=== PATIENT | male | born 1950 | race Caucasian/White ===

== ENCOUNTER → 2016-12-17 | Outpatient (CLI) | payer MEDICARE, OTHER | END | disposition home or self-care (01) | LOC: PCVCIMAG 11:48 | PROVIDERS: ATTEND Internal Medicine Cardiovascular Disease | DX: I65.23 Occlusion and stenosis of bilateral carotid arteries (principal); E11.9 Type 2 diabetes mellitus without complications; R01.1 Cardiac murmur, unspecified; R06.00 Dyspnea, unspecified; I25.10 Atherosclerotic heart disease of native coronary artery without angina pectoris; I35.0 Nonrheumatic aortic (valve) stenosis | CPT/HCPCS: 80061; 93005; 93306; 93880; G0463 ==

== ENCOUNTER → 2017-07-08 | Outpatient (CLI) | payer OTHER | END | disposition home or self-care (01) | LOC: PCVCCLINIC 14:35 | PROVIDERS: ATTEND Internal Medicine Cardiovascular Disease | DX: I25.10 Atherosclerotic heart disease of native coronary artery without angina pectoris (principal); E78.00 Pure hypercholesterolemia, unspecified; I10 Essential (primary) hypertension; I35.0 Nonrheumatic aortic (valve) stenosis; I77.9 Disorder of arteries and arterioles, unspecified; I42.9 Cardiomyopathy, unspecified; I70.1 Atherosclerosis of renal artery; R94.31 Abnormal electrocardiogram [ECG] [EKG]; E11.9 Type 2 diabetes mellitus without complications; Z87.891 Personal history of nicotine dependence; Z79.82 Long term (current) use of aspirin; Z79.899 Other long term (current) drug therapy | CPT/HCPCS: 80061; 93005; G0463 ==

== ENCOUNTER → 2019-04-23 | Outpatient (CLI) | payer MEDICARE ==
[~2019-04-23] MED LIST: REGADENOSON 0.4 MG/5 ML DISP.SYRIN. IV ONE
--- NOTE | 2019-04-23 17:18 | PCVCIMAG ---
APPROVED REPORT Imaging Protocol: Rest Tc-99m/Stress Tc-99m 1 day Study performed: 04/23/2019 09:00:29 Indication: Severe Dizziness and Hypertension Patient Location: Out-Patient Stress Nurse: Yasmeen Feldman RN, Casandra Bush RN DC Tech:Yokasta AMANDO SheridanMT Ht: 5 ft 8 in Wt: 214 lbs BSA: 2.10 m2 HR: 87 bpm BP: 144/64 mmHg BMI: 32.5 Rhythm: Sinus Rhythm Medical History Medical History: Hyperlipidemia, HTN, CAD, CVD, Diabetes, Former Smoker, [place] Medications: ASA, Atorvastatin, Jardiance, Amaryl, Metformin, Bystolic, Actos Allergies: No known drug allergies Cardiac Risk Factors: Age Previous Cardiac Procedures: 2002 PCI Diagonal Pretest Chest Pain Characteristics: No chest pain Exercise History: Indeterminate Meds Held (24 hrs): Bystolic Resting Data Rest SPECT myocardial perfusion imaging was performed in supine position 45 minutes following the intravenous injection of 10.2 mCi of Tc-99m Sestamibi. Time of rest injection: 0845 Date: 04/23/2019 Administration Route: IV Administration Site: Right Arm Pharmacologic Stress Pharmacologic stress test was performed by injecting Regadenoson 0.4 mg IV push over 10-15 seconds immediately followed by the intravenous injection of 34.3 mCi of Tc-99m Sestamibi. Time of stress injection: 1000 Date: 04/23/2019 Administration Route: IV Administration Site: Right Arm Gated Stress SPECT was performed 45 minutes after stress injection. Stress Test Details Stress Test: Pharmacologic stress testing performed using 0.4 mg of regadenoson per 5 mL given IV over 10 seconds. Reason for pharmacologic stress test: physical limitation. HRMax Heart Rate (APMHR): 153 bpm Resting HR: 87 bpmTarget HR (85% APMHR): 130 bpm Max HR Achieved: 99 bpm % of APMHR: 64 Recovery HR: 96 bpm BP Resting BP: 144/64 mmHg Max BP: 156/70 mmHg Recovery BP: 141/60 mmHg ECG Resting ECG: Sinus Rhythm Stress ECG: Sinus Rhythm Arrhythmia: VPC's Recovery ECG: Sinus Rhythm Clinical Reason for Termination: Completed protocol Stress Symptoms: Dyspnea Symptoms resolved with caffeine. Stress ECG Conclusion ECG: Non-ischemic Study Quality Study: Good Study Data Post stress, the left ventricular ejection was 44%.. SSS: 4 SRS: 6 SDS: 0 TID = 1.29. 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 Again noted is mild post-stress chamber dilatation which is a nonspecific findings sometimes seen with balanced ischemia or multiple vessel disease. Wall Motion Mildly decreased left ventricular systolic function. 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 Again noted is mild post-stress chamber dilatation which is a nonspecific findings sometimes seen with balanced ischemia or multiple vessel disease. Post stress, the left ventricular ejection was 44%. Interpreted by: Aldo Martin MD Electronically Approved: 04/23/2019 13:39:13 <Conclusion> ECG: Non-ischemic
== END | disposition home or self-care (01) ==
LOC: PCVCIMAG 08:24
PROVIDERS: ATTEND Internal Medicine Cardiovascular Disease
DX: I25.10 Atherosclerotic heart disease of native coronary artery without angina pectoris (principal); I25.5 Ischemic cardiomyopathy; R42 Dizziness and giddiness; Z87.891 Personal history of nicotine dependence; Z92.89 Personal history of other medical treatment
CPT/HCPCS: 78452; 93017; A9500; J2785